=== PATIENT | female | born 1975 | race Caucasian/White ===

== ENCOUNTER 2017-11-21 11:06 | Day surgery (SDC) | payer BC ==
[2017-11-21] MEDS ORDERED: Marcaine 0.5% SDV 10 ML IJ ONE (11:07)
[2017-11-21] MEDS ORDERED: DIPRIVAN 200 MG/20 ML IV ONE (11:07)
[2017-11-21] MEDS ORDERED: LIDOCAINE HCL 2% 100 MG/5 ML IJ ONE (11:07)
[2017-11-21] MEDS ORDERED: XYLOCAINE-MPF 1% 5ML SDV IJ ONE (11:07)
[2017-11-21] MEDS ORDERED: Lactated Ringers 1,000 ML IV ONE (11:38)
--- NOTE | 2017-11-21 13:42 | XRAY ---
Indication: Left L4-S1 MBB. Intraoperative fluoroscopy was provided for 29 seconds. 3 digital spot images submitted for interpretation demonstrates posterior spinal needle tips projecting over the left L3-L4, L4-L5, and L5-S1 facets. Correlate with intraoperative findings/report.
--- NOTE | 2017-11-21 16:00 | XRAY ---
29 seconds fluoroscopy time in surgery for left MBB L4-S1.
--- NOTE | 2017-11-22 08:43 | OP ---
DATE OF PROCEDURE: 11/21/2017 1226 SURGEON: Mihai Mead D.O. PREOPERATIVE DIAGNOSIS: Degenerative lumbar spine disease, spondylosis, low back pain. POSTOPERATIVE DIAGNOSIS: Degenerative lumbar spine disease, spondylosis, low back pain. PROCEDURE PERFORMED: Left L3, L4, L5 medial branch block under fluoroscopic guidance. DESCRIPTION OF THE PROCEDURE: The patient was taken to the operating room and placed in the prone position on the table. Skin at the injection site was prepped and draped in sterile fashion. Under fluoroscopy, bony anatomy of the targeted injection site was visualized. Induction agent was given as per anesthesia while vital signs were monitored. Local anesthetic agent of 0.5 cc of 1% lidocaine preservative free was introduced to anesthetize the skin and the subcutaneous tissue through the injection site. Under fluoroscopic guidance, a #20 gauge standard spinal needle was advanced into the target medial branch through the oblique approach. The preservative free 0.5 cc of 1% lidocaine and 0.5 cc of 0.25% Marcaine were injected into each of the targeted medial branch nerve. After the needle was being removed, the skin was cleansed with alcohol and then a bandage was applied. No complications or adverse consequences were observed. The patient was returned to the holding area until stabilized before discharge to home. Preoperative pain level is 10 out of 10 and postoperative pain level is 1 out of 10. The patient will be followed up within ten days after the injection for re-evaluation.
== END 2017-11-21 13:05 | disposition home or self-care (01) ==
LOC: SDC-PAIN 11:06
PROVIDERS: ATTEND Internal Medicine
DX: M47.816 Spondylosis without myelopathy or radiculopathy, lumbar region (principal); M48.062 Spinal stenosis, lumbar region with neurogenic claudication; M54.5 Low back pain; Z79.891 Long term (current) use of opiate analgesic
CPT/HCPCS: 64493; 64494; 64495; 72020; 77003; J2704

== ENCOUNTER 2017-12-19 09:04 | Day surgery (SDC) | payer BC ==
[2017-12-19] MEDS ORDERED: LIDOCAINE HCL 2% 100 MG/5 ML IJ ONE (09:05)
[2017-12-19] MEDS ORDERED: Marcaine 0.5% SDV 10 ML IJ ONE ×2 (09:05)
[2017-12-19] MEDS ORDERED: Xylocaine 1% Vial 30 ML PF IJ ONE ×2 (09:05)
[2017-12-19] MEDS ORDERED: DIPRIVAN 200 MG/20 ML IV ONE (09:05)
[2017-12-19] MEDS ORDERED: Lactated Ringers 1,000 ML IV ONE (09:56)
--- NOTE | 2017-12-19 13:08 | XRAY ---
Indication: Left L4-S1 MBB. Intraoperative fluoroscopy was provided for 34 seconds. 3 digital spot images submitted for interpretation demonstrates posterior spinal needle tips projecting over the expected course of the left L4, L5, and S1 nerve roots. Correlate with intraoperative findings/report.
--- NOTE | 2017-12-19 13:08 | XRAY ---
34 seconds fluoroscopy time in surgery for left L4-S1 MBB.
--- NOTE | 2017-12-20 09:27 | OP ---
DATE OF PROCEDURE: 12/19/2017 1037 SURGEON: Mihai Mead D.O. PREOPERATIVE DIAGNOSIS: Degenerative lumbar spine disease, spondylosis, low back pain. POSTOPERATIVE DIAGNOSIS: Degenerative lumbar spine disease, spondylosis, low back pain. PROCEDURE PERFORMED: Left L5, L4, L3 medial branch block under fluoroscopic guidance. DESCRIPTION OF THE PROCEDURE: The patient was taken to the operating room and placed in the prone position on the table. Skin at the injection site was prepped and draped in sterile fashion. Under fluoroscopy, bony anatomy of the targeted injection site was visualized. Induction agent was given as per anesthesia while vital signs were monitored. Local anesthetic agent used 5 cc of 1% lidocaine preservative-free. Under fluoroscopic guidance, a #20 gauge standard spinal needle was advanced into the target medial branch through the oblique approach. The medication used for this procedure is preservative-free 0.5 cc of half volume of 1% lidocaine plus half volume of 0.5% Marcaine to each injection site. After the needle was being removed, the skin was cleansed with alcohol and then a bandage was applied. No complications or adverse consequences were observed. The patient was returned to the holding area until stabilized before discharge to home. Preoperative pain level is 10 out of 10 and postoperative pain level is 0 out of 10. The patient will be followed up within ten days after the injection for re-evaluation.
== END 2017-12-19 11:10 | disposition home or self-care (01) ==
LOC: SDC-PAIN 09:04
PROVIDERS: ATTEND Internal Medicine
DX: M47.816 Spondylosis without myelopathy or radiculopathy, lumbar region (principal); M48.062 Spinal stenosis, lumbar region with neurogenic claudication; M54.5 Low back pain; Z79.891 Long term (current) use of opiate analgesic
CPT/HCPCS: 64493; 64494; 64495; 72020; 77003; J2001; J2704

== ENCOUNTER 2019-01-22 13:29 | Day surgery (SDC) | payer BC ==
[2019-01-22] MEDS ORDERED: Xylocaine 1% Vial 30 ML PF IJ ONE (13:30)
[2019-01-22] MEDS ORDERED: Depo-Medrol 40 MG/ML IM ONE (13:30)
[2019-01-22] MEDS ORDERED: Marcaine 0.5% SDV 10 ML IJ ONE (13:30)
[2019-01-22] MEDS ORDERED: DIPRIVAN 200 MG/20 ML IV ONE (14:17)
[2019-01-22] MEDS ORDERED: Ketamine HCl 50 MG/ML ONE ×2 (14:17→14:25)
[2019-01-22] MEDS ORDERED: Lactated Ringers 1,000 ML IV ONE (14:32)
--- NOTE | 2019-01-22 16:14 | XRAY ---
Indication: Left L4-S1 RFA. Intraoperative fluoroscopy was provided for 17 seconds. 3 digital spot images submitted for interpretation demonstrates posterior needle tips projecting over the expected course of the left L4-S1 nerve roots. Correlate with intraoperative findings/report. Incidental grade 2 L5 anterolisthesis.
--- NOTE | 2019-01-22 16:28 | XRAY ---
17 seconds of fluoroscopy was used in surgery for left L4-L5 and L5-S1 RFA.
== END 2019-01-22 14:16 | disposition home or self-care (01) ==
LOC: SDC-PAIN 13:29
PROVIDERS: ATTEND Psychiatry & Neurology Pain Medicine
DX: M47.816 Spondylosis without myelopathy or radiculopathy, lumbar region (principal); M54.5 Low back pain; K21.9 Gastro-esophageal reflux disease without esophagitis
CPT/HCPCS: 64635; 64636; 72100; 77002; 84703; J1030; J2001; J2704

== ENCOUNTER 2019-05-14 12:18 | Day surgery (SDC) | payer BC ==
[2019-05-14] MEDS ORDERED: Marcaine 0.5% SDV 10 ML IJ ONE (12:19)
[2019-05-14] MEDS ORDERED: Depo-Medrol 40 MG/ML IM ONE (12:19)
[2019-05-14] MEDS ORDERED: Ketamine HCl 50 MG/ML ONE (13:02)
[2019-05-14] MEDS ORDERED: DIPRIVAN 200 MG/20 ML IV ONE (13:02)
[2019-05-14] MEDS ORDERED: Lactated Ringers 1,000 ML IV ONE (15:26)
--- NOTE | 2019-05-14 15:30 | XRAY ---
Indication: Left SI joint injection. Intraoperative fluoroscopy was provided for 13 seconds. 2 digital spot images submitted for interpretation demonstrates posterior needle tip projecting over the inferior left SI joint. Correlate with intraoperative findings/report.
--- NOTE | 2019-05-14 16:54 | XRAY ---
13 seconds fluoroscopy time in surgery for left SI joint injection.
== END 2019-05-14 13:44 | disposition home or self-care (01) ==
LOC: SDC-PAIN 12:18
PROVIDERS: ATTEND Psychiatry & Neurology Pain Medicine
DX: M46.1 Sacroiliitis, not elsewhere classified (principal); K21.9 Gastro-esophageal reflux disease without esophagitis; Z79.899 Other long term (current) drug therapy
CPT/HCPCS: 27096; 72020; 77002; 84703; J1030; J2704; G0260

== ENCOUNTER 2019-06-11 13:39 | Day surgery (SDC) | payer BC ==
[2019-06-11] MEDS ORDERED: Depo-Medrol 40 MG/ML IM ONE (13:40)
[2019-06-11] MEDS ORDERED: Xylocaine 1% Vial 30 ML PF IJ ONE (13:40)
[2019-06-11] MEDS ORDERED: Sodium Chloride 0.9(Preservative Free) 10 ML IJ ONE (13:40)
[2019-06-11] MEDS ORDERED: DIPRIVAN 200 MG/20 ML IV ONE (15:54)
[2019-06-11] MEDS ORDERED: Ketamine HCl 50 MG/ML ONE (15:54)
--- NOTE | 2019-06-11 16:41 | XRAY ---
Indication: Lumbar TIFFANIE. Intraoperative fluoroscopy was provided for 15 seconds. 3 digital spot images submitted for interpretation demonstrates midline needle tip just posterior to the lumbosacral junction interspace. Small amount of contrast injected for needle tip placement. Correlate with intraoperative findings/report.
--- NOTE | 2019-06-11 16:43 | XRAY ---
15 seconds fluoroscopy time in surgery for lumbar TIFFANIE.
[2019-06-11] MEDS ORDERED: Lactated Ringers 1,000 ML IV ONE (18:23)
== END 2019-06-11 16:20 | disposition home or self-care (01) ==
LOC: SDC-PAIN 13:39
PROVIDERS: ATTEND Psychiatry & Neurology Pain Medicine
DX: M54.16 Radiculopathy, lumbar region (principal); K21.9 Gastro-esophageal reflux disease without esophagitis; Z79.899 Other long term (current) drug therapy
CPT/HCPCS: 62323; 72100; 77003; 84703; J1030; J2001; J2704; Q9966